=== PATIENT | male | born 1995 | race Caucasian/White ===

== ENCOUNTER 2020-04-21 15:23 | Emergency (ER) | payer OTHER ==
[~2020-04-21] VITALS: Ht 167.6 cm; Wt 63.5 kg
[2020-04-21 15:27] VITALS: BP 112/72
[2020-04-21] MEDS ORDERED: KETOROLAC 60 MG/2 ML VIAL IM ONE (17:00)
[2020-04-21 17:29] VITALS: BP 112/72
== END 2020-04-21 17:30 | disposition home or self-care (01) ==
LOC: MED 15:23
DX: M54.5 Low back pain (principal); F17.200 Nicotine dependence, unspecified, uncomplicated; W18.39XA Other fall on same level, initial encounter; Y92.89 Other specified places as the place of occurrence of the external cause; Y93.89 Activity, other specified; Y99.0 Civilian activity done for income or pay
CPT/HCPCS: 72100; 96372; 99283; J1885